=== PATIENT | female | born 1950 | race American Indian/Alaskan Native ===

== ENCOUNTER 2021-04-19 11:43 | Outpatient (CLI) | payer MEDICARE ==
[2021-04-19 12:28] LABS: Blood Urea Nitrogen 18 mg/dL (7-17)
--- NOTE | 2021-04-19 13:37 | Cat Scan Report ---
CTA CHEST WITH CONTRAST INDICATION / CLINICAL INFORMATION: ELEVATED D-DIMER. TECHNIQUE: Axial CT images were obtained through the chest after injection of IV contrast. 3 plane AK P and/or 3D reconstructions were produced. All CT scans at this location are performed using CT dose reduction for ALARA by means of automated exposure control. COMPARISON: None available. FINDINGS: The pulmonary arteries are patent without filling defect or evidence for PTE. Heart and aorta appear normal. Mild coronary artery disease is seen. No pericardial effusion. There is fatty infiltration of the liver. Mild dependent atelectasis within the lungs no focal consolidation or pleural effusion IMPRESSION: 1. No CT evidence for pulmonary embolism. 2. Minimal dependent atelectasis. Hepatomegaly with hepatic steatosis Signer Name: Cosme Aguilar MD Signed: 04/19/2021 1:32 PM Workstation Name: [id number]
== END 2021-04-19 11:44 | disposition home or self-care (01) ==
LOC: CT 11:43
PROVIDERS: ATTEND Internal Medicine Cardiovascular Disease
DX: J98.11 Atelectasis (principal); R79.89 Other specified abnormal findings of blood chemistry; R00.0 Tachycardia, unspecified; I25.10 Atherosclerotic heart disease of native coronary artery without angina pectoris; K76.0 Fatty (change of) liver, not elsewhere classified; Z86.711 Personal history of pulmonary embolism
CPT/HCPCS: 36415; 71275; 82565; 84520; Q9967